=== PATIENT | female | born 1990 | race African-American/Black ===

== ENCOUNTER 2022-05-06 19:05 | Emergency (ER) | payer SELFPAY ==
[~2022-05-06] VITALS: Ht 172.7 cm; Wt 68.2 kg
[2022-05-06 21:25] LABS: COVID AG,FIA SOURCE NASAL SWAB
[2022-05-06 22:19] VITALS: BP 102/62
== END 2022-05-06 22:30 | disposition home or self-care (01) ==
LOC: EDBD → EMS 19:08
DX: O99.342 Other mental disorders complicating pregnancy, second trimester (principal); F32.A Depression, unspecified; Z20.822 Contact with and (suspected) exposure to COVID-19; Z3A.25 25 weeks gestation of pregnancy
CPT/HCPCS: 99284; 99285